=== PATIENT | female | born 1955 | race Caucasian/White ===

== ENCOUNTER → 2016-10-28 | Outpatient (CLI) | payer BC, MEDICARE ==
[2016-10-28 12:19] LABS: Anion Gap 8 mmol/L; Blood Urea Nitrogen 26 mg/dL (7-17); Calcium 9.5 mg/dL (8.4-10.2); Carbon Dioxide 27 mmol/L (22-30); Chloride 104 mmol/L (98-107); Glucose 90 mg/dL (74-99); Non-African American GFR(MDRD) >60 (>60 ml/min/1.73 sqM); Potassium 4.6 mmol/L (3.5-5.1); Sodium 139 mmol/L (137-145)
== END | disposition home or self-care (01) ==
LOC: LABWHC1 11:34
PROVIDERS: ATTEND Internal Medicine
DX: Z01.812 Encounter for preprocedural laboratory examination (principal); R93.2 Abnormal findings on diagnostic imaging of liver and biliary tract
CPT/HCPCS: 36415; 80048; 82105

== ENCOUNTER → 2016-10-29 | Outpatient (CLI) | payer BC, MEDICARE ==
--- NOTE | 2016-10-29 14:06 | CT ---
EXAMINATION TYPE: CT abdomen w con DATE OF EXAM: 10/29/2016 1:57 PM COMPARISON: NONE HISTORY: Abnormal finding of liver CT DLP: 799.00 mGycm CONTRAST: CT scan of the abdomen is performed with Oral Contrast and with IV Contrast, patient injected with 10 0 ml mL of Omnipaque 300. FINDINGS: LUNG BASES-: No visible nodule. No infiltrate. LIVER/GB: No calcified gallstones. Simple cyst left hepatic lobe lateral segment measuring 10 mm. A dditional cyst near the falciform ligament measuring 6 mm. No solid space occupying hepatic lesions a re detected. Biliary tree is of normal caliber. PANCREAS: No inflammation. No distinct mass. SPLEEN: No splenic enlargement. No lesion seen. ADRENALS: No nodule. No thickening. KIDNEYS/BLADDER: No hydronephrosis. No nephrolithiasis. No disctinct renal mass. Urinary bladder g rossly unremarkable. BOWEL: Normal appendix. Normal bowel caliber. No inflammation. Gastric banding device is in place. LYMPH NODES: No greater than 1cm abdominal or pelvic lymph nodes are appreciated. AORTA: Atheromatous change abdominal aorta. OSSEOUS STRUCTURES: Severe degenerative change lumbar spine. OTHER: No significant additional abnormality is seen. IMPRESSION: 1. Hepatic cysts as discussed.
== END | disposition home or self-care (01) ==
LOC: RADCTMAIN 12:50
PROVIDERS: ATTEND Internal Medicine
DX: K76.89 Other specified diseases of liver (principal)
CPT/HCPCS: 74160; Q9967

== ENCOUNTER → 2017-03-11 | Outpatient (CLI) | payer BC, MEDICARE ==
--- NOTE | 2017-03-11 17:33 | PN ---
PROGRESS NOTE A 63-year-old female patient coming in for an annual check up regarding obstructive sleep apnea. 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 Since her last evaluation the patient has gained about 8 pounds. She is up to 195 pounds. Despite that, she is still very successful with the treatment. She is using AirFit F10 full-face mask, small size. No leaks around the mask. No hypersomnia or sleepiness during the day. She is averaging more than 7-8 hours of sleep every night. In fact, a CPAP compliance data that shows that her average CPAP use is around 8.4 hours per night. No snoring while on CPAP therapy. She is waking up. Refreshed and alert during the day. No hypersomnia or sleepiness. Note that she has undergone a recent bladder surgery at [facility] for bladder prolapse and that was successful without having any respiratory compromise or difficulties postop. BP is 101/73, pulse 77, respirations 16, temperature 98.1, saturation 96% on room air. Weight is 195, height is 63-1/2 inches. BMI is 34.0, Adona score is 1. GENERAL APPEARANCE: Calm, comfortable. HEENT: Short neck. Crowding of posterior pharynx. There is no goiter or neck masses. Mallampati class IV. Head is atraumatic, normocephalic. LUNGS: Clear to auscultation. HEART: Sounds are regular rhythm. Normal S1, S2. No S3. No murmurs. ABDOMEN: Soft, nontender. No organomegaly. EXTREMITIES: No edema. No cyanosis or clubbing. NEUROLOGIC: AOx3. No focal neurological deficits. SKIN: Negative for cellulitis, wounds or ulcers. IMPRESSION: 1. Obstructive sleep apnea currently on CPAP pressure of 8 cm of water. 2. Obesity with a BMI of 34, with interval weight gain. 3. Hypersomnia recovered with CPAP therapy. PLAN: 1. Continue CPAP therapy at the same level of pressure which is 8 cm of water. No need for any adjustment. 2. Refill her CPAP supplies and mask and filters. 3. Encourage weight loss. 4. Implement good sleep hygiene measures. 5. See me as needed. MMODL / IJN: [id number] /
== END ==
LOC: SLEEP 15:28
PROVIDERS: ATTEND Internal Medicine Critical Care Medicine
DX: G47.33 Obstructive sleep apnea (adult) (pediatric) (principal); E66.9 Obesity, unspecified; G47.10 Hypersomnia, unspecified

== ENCOUNTER → 2020-08-08 | Outpatient (CLI) | payer MEDICARE, BC ==
[2020-08-08 15:54] VITALS: BP 134/88; PULSE 81; RESP 16; TEMP 98.2; BMI 31.1
--- NOTE | 2020-08-08 17:54 | P.BASOAP ---
Subjective Progress Note Date: 08/08/20 Principal diagnosis: Morbid obesity 65-year-old female known to our service. Patient underwent laparoscopic band placement many years ago. Patient unsure how much fluid is in the band. Patient was as low as 150. Now in the 170s. Denies reflux. No vomiting. Rare episodes of dysphagia. Objective - Vital Signs Vital signs: Vital Signs Temp 98.2 F 08/08/20 15:51 Pulse 81 08/08/20 15:51 Resp 16 08/08/20 15:51 BP 134/88 08/08/20 15:51 Pulse Ox Intake & Output 08/07/20 08/08/20 08/08/20 18:59 06:59 18:59 Weight 79.832 kg - Exam Abdomen: Soft, nontender, nondistended Assessment/Plan (1) Morbid obesity Narrative/Plan: Patient interested in evaluation of the band. We do not know how much fluid was in the band. Her band was accessed sterilely. There is no fluid in there. 1 mL was added. 1 mL seems to be staying in the band. Difficult to say with certainty that there is not a leak from the system. Patient's family believe that she may have had her band emptied prior to open AAA repair in the past. Follow-up one month. Will check fluid volume at that time. Plan: Date: 08/08/20 Initial Weight: 136.078 kg Initial BMI: 53.1 Current Weight: 79.832 kg Current BMI: 31.1 Type of Surgery: Adjustable Gastric Banding Total Volume in Band: Previous Volume: Volume Removed: Volume Added: Band Size:
== END | disposition home or self-care (01) ==
LOC: BARWHC3 15:26
PROVIDERS: ATTEND Surgery
DX: E66.01 Morbid (severe) obesity due to excess calories (principal); Z48.815 Encounter for surgical aftercare following surgery on the digestive system; Z68.43 Body mass index [BMI] 50.0-59.9, adult
CPT/HCPCS: 99212

== ENCOUNTER → 2020-09-05 | Outpatient (CLI) | payer MEDICARE, BC ==
[2020-09-05 13:42] VITALS: BP 151/88; PULSE 53; RESP 16; TEMP 97.9; BMI 30.1
--- NOTE | 2020-09-05 16:25 | P.BASOAP ---
Subjective Progress Note Date: 09/05/20 Principal diagnosis: Morbid obesity Patient returns today for evaluation. At the time of her last visit 1 mL was added to her band. We were concerned there may be a leak in the system. Patient says she has not noticed any restriction since that time. Objective - Vital Signs Vital signs: Vital Signs Temp 97.9 F 09/05/20 13:39 Pulse 53 L 09/05/20 13:39 Resp 16 09/05/20 13:39 BP 151/88 09/05/20 13:39 Pulse Ox Intake & Output 09/04/20 09/05/20 09/05/20 18:59 06:59 18:59 Weight 77.111 kg - Exam Abdomen: Soft, nontender, nondistended Assessment/Plan (1) Morbid obesity Narrative/Plan: Patient's band was accessed sterilely. Again no fluid present. Patient has a leak in her system. Discussed options of repairing her lap band system versus removal. She is interested in band removal at this time. We'll schedule. Plan: Date: 09/05/20 Initial Weight: 136.078 kg Initial BMI: 53.1 Current Weight: 77.111 kg Current BMI: 30.1 Type of Surgery: Total Volume in Band: Previous Volume: Volume Removed: Volume Added: Band Size:
== END ==
LOC: BARWHC3 13:12
PROVIDERS: ATTEND Surgery
DX: E66.01 Morbid (severe) obesity due to excess calories (principal); Z68.30 Body mass index [BMI] 30.0-30.9, adult; Z98.84 Bariatric surgery status
CPT/HCPCS: 99211

== ENCOUNTER → 2020-09-18 | Outpatient (CLI) | payer MEDICARE, BC ==
[2020-09-18 09:58] LABS: ALT 19 U/L (4-34); AST 35 U/L (14-36); African American GFR (CKD) >90 (>60 ml/min/1.73 sqM); Albumin 3.9 g/dL (3.5-5.0); Alkaline Phosphatase 52 U/L (38-126); Anion Gap 8 mmol/L; Blood Urea Nitrogen 15 mg/dL (7-17); Calcium 9.4 mg/dL (8.4-10.2); Carbon Dioxide 29 mmol/L (22-30); Chloride 98 mmol/L (98-107); Glucose 87 mg/dL (74-99); Non-African American GFR(CKD) 80 (>60 ml/min/1.73 sqM); Potassium 4.1 mmol/L (3.5-5.1); Sodium 135 mmol/L (137-145); Total Bilirubin 0.5 mg/dL (0.2-1.3); Total Protein 6.4 g/dL (6.3-8.2)
[2020-09-18 10:03] LABS: Basophils % (A) 1 %; Eosinophils # (A) 0.2 k/uL (0-0.7); Eosinophils % (A) 4 %; HCT 39.1 % (34.0-46.0); HGB 13.4 gm/dL (11.4-16.0); Lymphocytes # (A) 1.3 k/uL (1.0-4.8); Lymphocytes % (A) 32 %; MCH 31.1 pg (25.0-35.0); MCHC 34.4 g/dL (31.0-37.0); MCV 90.4 fL (80.0-100.0); Mean Platelet Volume 7.7; Monocytes # (A) 0.3 k/uL (0-1.0); Monocytes % (A) 8 %; Neutrophils % (A) 52 %; Platelet Count 201 k/uL (150-450); RBC 4.33 m/uL (3.80-5.40); RDW 14.4 % (11.5-15.5); WBC 3.9 k/uL (3.8-10.6)
== END | disposition home or self-care (01) ==
LOC: LABPAT 08:34
PROVIDERS: ATTEND Surgery
DX: Z01.818 Encounter for other preprocedural examination (principal); R00.1 Bradycardia, unspecified
CPT/HCPCS: 36415; 80053; 85025; 93005

== ENCOUNTER → 2020-09-29 | Day surgery (SDC) | payer MEDICARE, BC ==
[2020-09-25 15:11] VITALS: BMI 28.3
[~2020-09-29] MED LIST: BUPIVACAINE (PF) 0.5% 30 ML VIAL SQ ONE; DEXAMETHASONE SOD PHOSPHATE 4 MG/ML 1 ML VIAL IV ONE; GLYCOPYRROLATE 0.2 MG/ML 2 ML VIAL ONE; HEPARIN SODIUM,PORCINE 5,000 UNIT/ML 1 ML VIAL SQ ONE; HEPARIN SODIUM,PORCINE/PF 5,000 UNIT/0.5 ML SYRINGE SQ ONE; HYDROmorphone 0.5 MG/0.5 ML SYRINGE IVP PRN; LACTATED RINGERS 1,000 ML IV ONE; LACTATED RINGERS 1,000 ML IV SCH; LIDOCAINE 1% (10MG/ML) FOR IV START INTRADERMA PRN; LIDOCAINE 1% INJ 10MG/ML (20 ML MDV) ONE; MIDAZOLAM 2 MG/2 ML VIAL IV PRN; NALOXONE 0.4 MG/ML 1 ML VIAL IV PRN; NEOSTIGMINE 1 MG/ML 10 ML VIAL ONE; ONDANSETRON 4 MG/2 ML VIAL IVP ONE; PROPOFOL 10 MG/ML 20 ML VIAL IV ONE; ROCURONIUM 10 MG/ML (5 ML VIAL) IV ONE; SUCCINYLCHOLINE CHLORIDE 100 MG/5 ML SYR IV ONE; ePHEDrine SULFATE/0.9% NACL/PF 50 MG/5 ML SYRINGE IV ONE; fentaNYL (PF) 50 MCG/ML 2 ML AMP ONE
--- NOTE | 2020-09-29 10:54 | P.GSHP ---
History of Present Illness H&P Date: 09/29/20 Chief Complaint: Malfunctioning LAP-BAND 65-year-old female well-known to our service. Patient underwent previous lap band placement. Recently she and I have accessed her band and noticed no fluid there. Patient diagnosed with a leak from either the band or the port. She is here today to have the band removed. She is not interested in replacing the band at this time. Past Medical History Past Medical History: COPD, Sleep Apnea/CPAP/BIPAP Additional Past Medical History / Comment(s): left ear cochlear implant, hx of encephalitis age 3, no current rx for COPD, History of Any Multi-Drug Resistant Organisms: None Reported Past Surgical History: Adenoidectomy, Breast Surgery, Ear Surgery, Hernia Repair, Orthopedic Surgery, Tonsillectomy Additional Past Surgical History / Comment(s): ear reconstruction x2, mastoidectomy, ear tubes, right carpal tunnel surgery, bunionectomy [place], AAA repair, lap band surgery, panniculectomy with hernia repair, benign cyst removed from right breast Past Anesthesia/Blood Transfusion Reactions: No Reported Reaction Smoking Status: Former smoker - Past Family History Mother Family Medical History: Cancer Additional Family Medical History / Comment(s): leukemia Father Family Medical History: Cancer Additional Family Medical History / Comment(s): prostate Brother(s) Family Medical History: Cancer Additional Family Medical History / Comment(s): lung Medications and Allergies Home Medications Medication Instructions Recorded Confirmed Type No Known Home Medications 11/29/13 09/29/20 History Allergies Allergy/AdvReac Type Severity Reaction Status Date / Time adhesive tape Allergy skin peels Verified 09/29/20 10:09 celecoxib [From Celebrex] Allergy Anaphylaxis Verified 09/29/20 10:09 nickel [Nickel] Allergy Rash/Hives Verified 09/29/20 10:09 sulfur dioxide Allergy Anaphylaxis Verified 09/29/20 10:09 Surgical - Exam Vital Signs Temp Pulse Resp BP Pulse Ox 98.0 F 66 16 133/68 99 09/29/20 10:03 09/29/20 10:03 09/29/20 10:03 09/29/20 10:03 09/29/20 10:03 Physical exam: General: Well-developed, well-nourished HEENT: Normocephalic, sclerae nonicteric Abdomen: Nontender, nondistended Extremities: No edema Neuro: Alert and oriented Assessment and Plan (1) Morbid obesity Narrative/Plan: Will proceed with laparoscopic lap band removal. Risks of bleeding, infection, perforation, conversion to an open procedure, nausea vomiting, reflux reviewed. Patient understands and wishes to proceed. Current Visit: No Status: Acute Code(s): E66.01 - MORBID (SEVERE) OBESITY DUE TO EXCESS CALORIES SNOMED Code(s): 696861201
[2020-09-29 13:21] VITALS: TEMP 97.6
--- NOTE | 2020-09-29 13:27 | P.OP ---
Date of Procedure: 09/29/20 Procedure(s) Performed: PREOPERATIVE DIAGNOSIS: Malfunctioning LAP-BAND POSTOPERATIVE DIAGNOSIS: Same PROCEDURE: Laparoscopic lap band removal SURGEON: Kamari EBL: Minimal ANESTHESIA: General COMPLICATIONS: None OPERATIVE PROCEDURE: The patient was brought and placed on the operating room table in the supine position. The patient was placed under general anesthesia at that time. The patient was then placed in lithotomy. The abdomen was prepped and draped in the usual sterile fashion. The previous port incision was localized and then incised using a scalpel. The port was easily excised using electrocautery. The port was inspected. There was obvious linear hole along the junction between the band tubing and the port tubing this was where the fluid had leaked out. Entrance into the peritoneal cavity occurred using a 5 mm optical trocar through the old trocar entrance site. Insufflation took place to 15 mmHg. A right subxiphoid 5 mm trocar was placed. This was then removed and the medium Skylar hook was used to elevate the left lobe of the liver anteriorly. An additional 5 mm trocar was placed under direct visualization in the left lateral upper quadrant. The original 5 mm trocar was switched to a 15 mm trocar. A additional 5 mm trocar was placed in the right upper quadrant under direct dilatation. There were adhesions to the band in the buccal that were lysed using both the LigaSure and electrocautery. The band was then cut using the laparoscopic carolann. The band was then removed easily in 2 portions through the 15 mm trocar site. The stomach itself was inspected and revealed no evidence of erosion or prolapse. The trochars were removed. The fascia at the 15 mm site was closed using a [id number] 0 Vicryl stitch. The subcutaneous tissues at the port site was closed using a 3-0 Vicryl suture. The skin at all 4 incision sites were closed using 4-0 Monocryl sutures. Skin glue was then applied. DISPOSITION: Stable to recovery room
[2020-09-29 13:41] VITALS: RESP 16
[2020-09-29 14:22] VITALS: BP 148/81; PULSE 61
== END ==
LOC: OR 09:32
PROVIDERS: ATTEND Surgery
DX: K95.09 Other complications of gastric band procedure (principal); E66.01 Morbid (severe) obesity due to excess calories; J44.9 Chronic obstructive pulmonary disease, unspecified; Z86.79 Personal history of other diseases of the circulatory system; Z68.43 Body mass index [BMI] 50.0-59.9, adult; Z87.891 Personal history of nicotine dependence; Z88.2 Allergy status to sulfonamides; Z88.6 Allergy status to analgesic agent; Z88.8 Allergy status to other drugs, medicaments and biological substances; Y84.8 Other medical procedures as the cause of abnormal reaction of the patient, or of later complication, without mention of misadventure at the time of the procedure
CPT/HCPCS: 43772; J1644; J1100; J2710; J0690; J2405; J2001; J3010; J0330; J2704

== ENCOUNTER → 2020-10-24 | Outpatient (CLI) | payer MEDICARE, BC ==
[2020-10-24 14:36] VITALS: BMI 27.4
--- NOTE | 2020-10-24 16:01 | P.BASOAP ---
Subjective Progress Note Date: 10/24/20 Principal diagnosis: Morbid obesity Patient returns after recent laparotomy and removal. Doing well. No pain. She has lost weight since her visit. Objective - Vital Signs Vital signs: Intake & Output 10/23/20 10/24/20 10/24/20 18:59 06:59 18:59 Weight 70.307 kg - Exam Abdomen: Soft, nondistended, incisions clean and dry Assessment/Plan (1) Morbid obesity Narrative/Plan: Patient doing well at this time. Monitor incision sites. Resume normal diet and activities. Follow-up as needed. Plan: Date: 10/24/20 Initial Weight: 136.078 kg Initial BMI: 53.1 Current Weight: 70.307 kg Current BMI: 27.4 Type of Surgery: Total Volume in Band: Previous Volume: Volume Removed: Volume Added: Band Size:
== END ==
LOC: BARWHC3 13:20
PROVIDERS: ATTEND Surgery
DX: E66.01 Morbid (severe) obesity due to excess calories (principal); Z98.84 Bariatric surgery status; Z68.27 Body mass index [BMI] 27.0-27.9, adult; Z88.6 Allergy status to analgesic agent; Z88.2 Allergy status to sulfonamides; Z87.891 Personal history of nicotine dependence
CPT/HCPCS: 99211